=== PATIENT | female | born 1980 | race Caucasian/White ===

== ENCOUNTER 2021-06-30 11:15 | Emergency (ER) | payer SELFPAY ==
[2021-06-30 11:18] VITALS: BP 120/88; PULSE 88; RESP 16; TEMP 36.9; O2SAT 98; BMI 43.8
--- NOTE | 2021-06-30 11:31 | ECG_ITS ---
APPROVED REPORT Exam: Resting ECG HR:72 bpm ECG Measurements Heart Rate 72 AXES DE 144 P 66 QRSd 99 QRS 82 QT 376 T 55 QTc 400 Conclusion SINUS RHYTHM POSSIBLE RIGHT VENTRICULAR CONDUCTION DELAY [RSR (QR) IN V1/V2] BORDERLINE ECG UNCONFIRMED REPORT Electronically signed by : Martín Tran MD 07/01/2021 12:12:54
[2021-06-30 11:33] VITALS: BP 123/70; PULSE 73; RESP 16; O2SAT 97
--- NOTE | 2021-06-30 11:34 | [facility].EDGENADL ---
ED Disposition Clinical Impression: Acute bronchitis Qualifiers: Bronchitis organism: unspecified organism Qualified Code(s): J20.9 - Acute bronchitis, unspecified Disposition: Home, Self-Care Condition on Discharge: Good Instructions: DI for Acute Bronchitis Additional Instructions: Zithromax as prescribed. Tessalon as needed for cough. Additional instructions for ACUTE BRONCHITIS: Use Tylenol or Ibuprofen for pain or fever. Rest and plenty of fluids. Return immediately if you have an uncontrollable fever greater than 102 degrees, severe headache or neck stiffness, difficulty breathing or shortness of breath, persistent vomiting, severe sore throat or inability to swallow. See your physician if not improving in 4-5 days. Prescriptions: Benzonatate [Benzonatate 100mg cap] 100 mg PO TIDP PRN #15 cap PRN Reason: Cough Transmission Status: Pending to [facility] Azithromycin [Zithromax 250mg tab] 250 mg PO DIRECTED #6 tab Transmission Status: Pending to [facility] Referrals: Provider,Referral, [Primary Care Provider] - - Critical Care Critical Care Time: No Attestation: On , the high probability of a clinically significant, sudden or life threatening deterioration of the following system(s) required my full and direct attention, intervention and personal management. The time I documented below is in addition to time spent performing reported procedures but includes the following listed in this critical care notation. Medical Decision Making - Monty Inquiry Pt receiving controlled substance: No Vital Signs: 06/30/21 11:18 06/30/21 11:33 Temperature 98.4 F Temperature Source Oral Pulse Rate 73 Pulse Rate [Radial] 88 Respiratory Rate 16 16 Blood Pressure 123/70 Blood Pressure [Right Arm] 120/88 Blood Pressure Mean 88 Blood Pressure Mean [Right Arm] 98 Blood Pressure Position [Right Arm] Sitting 02 Sat by Pulse Oximetry 98 97 Oxygen Delivery Method Room Air Orders (Tests/Meds): ORDERS Category Date Time Status Chest XR 2 view (NOT portable) [XR chest 2V] Stat Exams 06/30/21 11:39 Taken Full Resp Panel w/COVID ([facility]) Routine Lab 06/30/21 11:45 Received - Radiology Data #1 Image(s): Chest Image Reviewed: Yes I reviewed the patient's radiology image Preliminary Findings: Normal/NAD - ECG Data Tracing #1 EKG interpreted by Js Oneil MD: Rhythm: sinus Rate: 72 [place]: normal Ectopy: none Conduction: normal ST Segment Changes: none T Wave Changes: none Q Waves: none No evidence of acute ischemia or injury General Adult HPI - General Stated complaint: cough Time Seen by Provider: 06/30/21 11:35 - History of Present Illness HPI narrative: The patient is visiting here from [place] for the past month. She says that she has had a productive cough for 1 month, sometimes yellow sputum, sometimes green, sometimes brown, sometimes clear. Denies fever. Occasional left-sided chest pains. No shortness of breath. No fever. No rhinorrhea or sore throat. She is a smoker. No history of environmental allergies. No known exposures. - Related Data Home Medications Medication Instructions Recorded Confirmed Aspirin [Aspirin 325mg Tab] 325 mg PO DAILY 06/30/21 06/30/21 dilTIAZem HCL [Diltiazem 24Hr ER] 120 mg PO DAILY 06/30/21 06/30/21 Previous Rx's Medication Instructions Recorded Azithromycin [Zithromax 250mg 250 mg PO DIRECTED #6 tab 06/30/21 tab] Benzonatate [Benzonatate 100mg 100 mg PO TIDP PRN #15 cap 06/30/21 cap] Allergies Allergy/AdvReac Type Severity Reaction Status Date / Time No Known Allergies Allergy Verified 06/30/21 11:38 [facility] History - Hepatitis A Screen Attestation statement:: This patient has been screened for Hepatitis A risk factors. I have reviewed the patient's past medical history: Yes ROS Obtained: Yes Systems reviewed as appropriate & no ad
--- NOTE | 2021-06-30 11:39 | XR_ITS ---
FINAL REPORT CLINICAL HISTORY: cough FINDINGS: TWO-VIEW CHEST The heart size is normal. The mediastinum is normal. The lungs are clear. Left subclavian pacer is identified There is no pneumothorax. There is a chronic right 7th posterior rib fracture. IMPRESSION: No acute cardiopulmonary process. Reviewed, Interpreted and Dictated by Florin Robins III, MD Transcribed by Eliza Cardona Authenticated by Florin Robins III, MD on 06/30/2021 12:49:04 PM [facility]
[2021-06-30 11:49] LABS: Adenovirus,PCR Not Detected (NotDetected); Bordetella Pertussis Not Detected (NotDetected); Chlamydophila Pneumoniae, PCR Not Detected (NotDetected); Coronavirus 19, PCR Not Detected (NotDetected); Coronavirus 229E Not Detected (NotDetected); Coronavirus NL63 Not Detected (NotDetected); Coronavirus OC43 Not Detected (NotDetected); Coronovirus HKU1,PCR Not Detected (NotDetected); Human Metapneumovirus Not Detected (NotDetected); Influenza A, PCR Not Detected (NotDetected); Influenza AH1, 2009 Not Detected (NotDetected); Influenza AH1, PCR Not Detected (NotDetected); Influenza AH3,PCR Not Detected (NotDetected); Influenza B, PCR Not Detected (NotDetected); Mycoplasma Pneumoniae, PCR Not Detected (NotDetected); Parainfluenza 1, PCR Not Detected (NotDetected); Parainfluenza 2, PCR Not Detected (NotDetected); Parainfluenza 3, PCR Not Detected (NotDetected); Parainfluenza 4, PCR Not Detected (NotDetected); Respiratory Syncytial Virus Not Detected (NotDetected); Rhinovirus/Enterovirus Not Detected (NotDetected)
--- NOTE | 2021-06-30 11:59 | PC.NURSE ---
pt to xray
[2021-06-30 12:42] VITALS: BP 122/74; PULSE 88; RESP 16; TEMP 36.6; O2SAT 98
== END 2021-06-30 12:44 | disposition home or self-care (01) ==
PROVIDERS: Emergency Provider Emergency Medicine
DX: J20.9 Acute bronchitis, unspecified (principal); R07.89 Other chest pain; F17.210 Nicotine dependence, cigarettes, uncomplicated
CPT/HCPCS: 71046; 87581; 87632; 87798; 93005; 99283; C9803; U0003; U0005